=== PATIENT | male | born 1965 | race Asian ===

== ENCOUNTER 2019-09-09 14:37 | Inpatient (IN) | payer MEDICARE, MEDICAID ==
[~2019-09-09] VITALS: Ht 170.2 cm; Wt 102.5 kg
[~2019-09-09 14:37] MED LIST: ACET325T14 PO; AMIT10TA PO; AMLO5TAB4 PO; ASPI81TA45 PO; ATOR10TA PO; CALC667C PO; DARB60VI SQ; LEVO750T26 PO; LISI-170 PO; LISI2.5T PO; METO50TA82 PO; ONDA8TAB12 PO; ONDA8TAB16 SL; OXYC5TAB2 PO; POLY17PO5 PO
[2019-09-09 16:06] LABS: BASOPHILS # (AUTO) 0.05 x10^3/uL (0-0.1); BASOPHILS % (AUTO) 1 % (0-1); EOSINOPHILS # (AUTO) 0.09 x10^3/uL (0-0.4); EOSINOPHILS % (AUTO) 3 % (1-7); LYMPHOCYTES # (AUTO) 0.64 x10^3/uL (1-3.4); LYMPHOCYTES % (AUTO) 17 % (22-44); MD NO; MEAN CORPUSCULAR HGB CONC 33.1 g/dL (33.2-36.2); MEAN CORPUSCULAR VOLUME 87.7 fL (81-97); MEAN PLATELET VOLUME 7.4 fL (7.4-10.4); MONOCYTES # (AUTO) 0.22 x10^3/uL (0.2-0.8); MONOCYTES % (AUTO) 6 % (2-9); NEUTROPHILS # (AUTO) 2.67 x10^3/uL (1.8-6.8); NEUTROPHILS % (AUTO) 73 % (42-75); PLATELET COUNT 161 x10^3/uL (130-400); RED BLOOD COUNT 3.26 x10^6/uL (4.38-5.82); RED CELL DISTRIBUTION WIDTH 15.3 % (9.4-14.8)
[2019-09-09 16:15] LABS: ALBUMIN 3.5 g/dL (3.4-5.0); ANION GAP 9 mmol/L (5-15); CHLORIDE 97 mmol/L (98-107)
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
[2019-09-09] MEDS ORDERED: CYCLOBENZAPRINE 10 MG TABLET ONE (17:19)
[2019-09-09] MEDS ORDERED: OXYcodone/APAP 5/325MG TABLET ONE (17:20)
[2019-09-09] MEDS ORDERED: CYCLOBENZAPRINE 10 MG TABLET PO ONE (17:30)
[2019-09-09] MEDS ORDERED: OXYcodone/APAP 5/325MG TABLET PO ONE (17:30)
--- NOTE | 2019-09-09 18:17 | NUR ---
PT STATES SINCE MEDICATED PAIN IN TAILBONE AREA HAS MOVED TO ANOTHER AREA. NO PAIN DOWN LEGS WHILE LYING IN GURNEY.
--- NOTE | 2019-09-09 19:00 | NUR ---
REPORT TO PRINCESS EDWARDS
--- NOTE | 2019-09-09 19:58 | NUR ---
Patient report given to Med/telegraph service clerk. Patient to be transferred to room 402-2.
[2019-09-09 20:11] VITALS: BP 228/116
[2019-09-09] MEDS ORDERED: hydrALAzine 20 MG/ML, 1ML ONE (21:40)
[2019-09-09] MEDS ORDERED: hydrALAzine 20 MG/ML, 1ML IV ONE (22:00)
[2019-09-09] MEDS ORDERED: CLON0.3T PO (22:17)
[2019-09-09] MEDS ORDERED: FLUT16SP24 NS (22:22)
[2019-09-09] MEDS ORDERED: CYCL-259 PO (22:23)
[2019-09-09] MEDS ORDERED: DULO30CA4 PO (22:24)
[2019-09-09] MEDS ORDERED: AMLO5TAB10 PO (22:25)
[2019-09-09] MEDS ORDERED: ASPI-191 PO (22:26)
[2019-09-09] MEDS ORDERED: AA8/1CAP3 PO (22:26)
[2019-09-09] MEDS ORDERED: MINO2.5T PO (22:28)
[2019-09-09 22:59] VITALS: BP 196/90
[2019-09-10] MEDS ORDERED: AMLO5TAB10 PO (00:26)
[2019-09-10] MEDS ORDERED: DOCUSATE 100 MG CAPSULE PO PRN (00:30)
[2019-09-10] MEDS ORDERED: FLUTICASONE NASAL SPRAY 16GM NAS PRN (00:30)
[2019-09-10] MEDS ORDERED: TEMAZEPAM 15 MG CAPSULE PO PRN (00:30)
[2019-09-10] MEDS ORDERED: AMLODIPINE MC SCH (00:30)
[2019-09-10] MEDS ORDERED: GABAPENTIN 300 MG CAPSULE PO PRN (00:30)
[2019-09-10 01:27] LABS: RAPID INFLUENZA A Negative (Negative); RAPID INFLUENZA B Negative (Negative)
[2019-09-10] MEDS: hydrALAzine 20 MG/ML, 1ML IVPush PRN ×2 (02:35→13:46)
[2019-09-10 02:37] VITALS: BP 209/108
[2019-09-10] MEDS: HEPARIN 5,000 UNITS/ML, 1ML SQ SCH ×3 (05:27→22:13)
[2019-09-10] MEDS: NICOTINE 7 MG/24 HR PATCH.TD24 TD SCH (05:27)
[2019-09-10] MEDS: DULOXETINE 30 MG CAPSULE.DR PO SCH ×3 (05:28→16:23)
[2019-09-10] MEDS ORDERED: AMLODIPINE 5 MG TABLET PO SCH ×2 (06:00→09:00)
[2019-09-10 07:00] VITALS: BP 210/110
[2019-09-10] MEDS: CYCLOBENZAPRINE 10 MG TABLET PO SCH ×2 (07:22→20:18)
[2019-09-10] MEDS: ASPIRIN 81 MG TABLET EC PO SCH (07:41)
[2019-09-10] MEDS: LIDODERM 5% PATCH TD PRN (07:42)
[2019-09-10] MEDS ORDERED: MINOXIDIL 2.5 MG TABLET PO SCH (09:00)
[2019-09-10] MEDS ORDERED: [UNRECOGNIZED DRUG - OTHER] PO SCH (09:00)
[2019-09-10] MEDS: ONDANSETRON 2MG/ML, 2ML IVPush PRN (09:18)
[2019-09-10] MEDS ORDERED: DARBEPOETIN 60 MCG/ML SQ SCH (10:00)
[2019-09-10] MEDS: ACETAMINOPHEN 325 MG TABLET PO PRN ×2 (13:45→20:23)
[2019-09-10 14:58] VITALS: BP 154/74
[2019-09-10 20:06] VITALS: BP 192/94
[2019-09-10] MEDS: METOPROLOL TARTRATE 50 MG TABLET PO SCH (20:19)
[2019-09-10] MEDS: MINOXIDIL 2.5 MG TABLET PO SCH (20:19)
[2019-09-10 21:42] VITALS: BP 163/83
[2019-09-11] VITALS (8 sets, daily range): BP systolic 131–205; BP diastolic 71–106
[2019-09-11] MEDS: ACETAMINOPHEN 325 MG TABLET PO PRN ×3 (01:02→10:41)
[2019-09-11] MEDS: hydrALAzine 20 MG/ML, 1ML IVPush PRN ×2 (01:11→05:18)
[2019-09-11] MEDS ORDERED: AMLODIPINE 10 MG TAB ONE ×2 (02:56→03:31)
[2019-09-11] MEDS: AMLODIPINE 5 MG TABLET PO SCH ×2 (03:37→07:55)
[2019-09-11] MEDS: HEPARIN 5,000 UNITS/ML, 1ML SQ SCH ×2 (05:18→14:00)
[2019-09-11] MEDS: NICOTINE 7 MG/24 HR PATCH.TD24 TD SCH (05:21)
[2019-09-11 05:54] LABS: ALBUMIN 3.4 g/dL (3.4-5.0); BASOPHILS # (AUTO) 0.02 x10^3/uL (0-0.1); BASOPHILS % (AUTO) 1 % (0-1); CALCIUM 8.4 mg/dL (8.5-10.1); CHLORIDE 99 mmol/L (98-107); EOSINOPHILS # (AUTO) 0.08 x10^3/uL (0-0.4); EOSINOPHILS % (AUTO) 2 % (1-7); LYMPHOCYTES # (AUTO) 0.57 x10^3/uL (1-3.4); LYMPHOCYTES % (AUTO) 15 % (22-44); MD NO; MEAN CORPUSCULAR HEMOGLOBIN 29.2 pg (27.5-34.5); MEAN CORPUSCULAR HGB CONC 33.1 g/dL (33.2-36.2); MEAN CORPUSCULAR VOLUME 88.2 fL (81-97); MEAN PLATELET VOLUME 7.7 fL (7.4-10.4); MONOCYTES # (AUTO) 0.24 x10^3/uL (0.2-0.8); MONOCYTES % (AUTO) 6 % (2-9); NEUTROPHILS # (AUTO) 2.88 x10^3/uL (1.8-6.8); NEUTROPHILS % (AUTO) 76 % (42-75); PLATELET COUNT 157 x10^3/uL (130-400); RED BLOOD COUNT 3.28 x10^6/uL (4.38-5.82); RED CELL DISTRIBUTION WIDTH 15.1 % (9.4-14.8)
[2019-09-11 05:57] LABS: ANION GAP 8 mmol/L (5-15); CREATININE 8.78 mg/dL (0.7-1.3)
[2019-09-11] MEDS: CYCLOBENZAPRINE 10 MG TABLET PO SCH (07:54)
[2019-09-11] MEDS: MINOXIDIL 2.5 MG TABLET PO SCH (07:54)
[2019-09-11] MEDS: METOPROLOL TARTRATE 50 MG TABLET PO SCH (07:54)
[2019-09-11] MEDS: ASPIRIN 81 MG TABLET EC PO SCH (07:54)
[2019-09-11] MEDS: LIDODERM 5% PATCH TD PRN (07:58)
[2019-09-11] MEDS: ONDANSETRON 2MG/ML, 2ML IVPush PRN (08:11)
[2019-09-11] MEDS ORDERED: AMLODIPINE 5 MG TABLET PO SCH (09:00)
[2019-09-11] MEDS ORDERED: DULOXETINE 30 MG CAPSULE.DR PO SCH (09:00)
[2019-09-11] MEDS ORDERED: CLON0.1T22 PO (09:46)
[2019-09-11] MEDS ORDERED: MINO2.5T PO (09:46)
[2019-09-11] MEDS: SEVELAMER CARBONATE 800MG TAB PO SCH ×2 (11:59→17:00)
== END 2019-09-11 17:31 | disposition home or self-care (01) | DRG 551 ==
LOC: ED 18:27 → EDIP 18:28 → ED 18:39 → 4WST 19:58 → DCLOUNGE 09-11 17:07
PROVIDERS: ADMIT Internal Medicine; ATTEND Family Medicine
PROC: 5A1D70Z Performance of Urinary Filtration, Intermittent, Less than 6 Hours Per Day (ICD-10-PCS; principal; 2019-09-10)
PROC: 5A1D70Z Performance of Urinary Filtration, Intermittent, Less than 6 Hours Per Day (ICD-10-PCS; 2019-09-11)
DX: M51.36 Other intervertebral disc degeneration, lumbar region (principal); N18.6 End stage renal disease; J96.91 Respiratory failure, unspecified with hypoxia; I13.2 Hypertensive heart and chronic kidney disease with heart failure and with stage 5 chronic kidney disease, or end stage renal disease; E66.01 Morbid (severe) obesity due to excess calories; E78.5 Hyperlipidemia, unspecified; F17.210 Nicotine dependence, cigarettes, uncomplicated; I25.10 Atherosclerotic heart disease of native coronary artery without angina pectoris; I50.9 Heart failure, unspecified; D63.1 Anemia in chronic kidney disease; Z95.1 Presence of aortocoronary bypass graft; Z99.2 Dependence on renal dialysis; Z91.14 Patient's other noncompliance with medication regimen; Z79.899 Other long term (current) drug therapy; Z68.35 Body mass index [BMI] 35.0-35.9, adult; Z79.82 Long term (current) use of aspirin; M54.5 Low back pain
CPT/HCPCS: 36415; 71045; 72110; 80048; 80069; 82040; 85025; 86704; 86706; 87340; 87400; 90935; 93005; 93306; 93356; 99285; G0378; J0881; J1644; J2405; J0360

== ENCOUNTER 2019-09-29 02:41 | Emergency (ER) | payer MEDICAID, MEDICARE ==
[~2019-09-29] VITALS: Ht 170.2 cm; Wt 101.7 kg
[~2019-09-29 02:41] MED LIST changes: +AA8/1CAP3 PO; +AMLO5TAB10 PO; +ASPI-191 PO; +CLON0.1T22 PO; +CLON0.3T PO; +CYCL-259 PO; +DULO30CA4 PO; +FLUT16SP24 NS; +MINO2.5T PO
[2019-09-29] MEDS: NITROGLYCERIN SINGLE TAB 0.4 MG SL PRN ×3 (03:10→03:22)
[2019-09-29] MEDS ORDERED: NITROGLYCERIN/D5W PMX 250 ML ONE (03:19)
[2019-09-29 03:29] LABS: BASOPHILS # (AUTO) 0.04 x10^3/uL (0-0.1); BASOPHILS % (AUTO) 1 % (0-1); EOSINOPHILS # (AUTO) 0.06 x10^3/uL (0-0.4); EOSINOPHILS % (AUTO) 2 % (1-7); LYMPHOCYTES # (AUTO) 0.47 x10^3/uL (1-3.4); LYMPHOCYTES % (AUTO) 13 % (22-44); MD NO; MEAN CORPUSCULAR HEMOGLOBIN 28.2 pg (27.5-34.5); MEAN CORPUSCULAR VOLUME 87.9 fL (81-97); MEAN PLATELET VOLUME 7.5 fL (7.4-10.4); MONOCYTES # (AUTO) 0.25 x10^3/uL (0.2-0.8); MONOCYTES % (AUTO) 7 % (2-9); NEUTROPHILS # (AUTO) 2.93 x10^3/uL (1.8-6.8); NEUTROPHILS % (AUTO) 78 % (42-75); PLATELET COUNT 130 x10^3/uL (130-400); RED BLOOD COUNT 2.93 x10^6/uL (4.38-5.82); RED CELL DISTRIBUTION WIDTH 16.8 % (9.4-14.8)
[2019-09-29 03:38] LABS: ALANINE AMINOTRANSFERASE 17 U/L (12-78); ALBUMIN 3.4 g/dL (3.4-5.0); ANION GAP 11 mmol/L (5-15); CALCIUM 7.2 mg/dL (8.5-10.1); CHLORIDE 99 mmol/L (98-107)
[2019-09-29 03:42] LABS: ALKALINE PHOSPHATASE 92 U/L (45-117); BILIRUBIN,TOTAL 0.6 mg/dL (0.2-1.0)
[2019-09-29] MEDS: NITROGLYCERIN/D5W PMX 250 ML IV PRN ×6 (03:43→04:49)
[2019-09-29 03:45] LABS: TROPONIN I 0.125 ng/mL (0.000-0.045)
--- NOTE | 2019-09-29 03:46 | NUR ---
provider notified of critical troponin of 0.125
[2019-09-29] MEDS ORDERED: ASPIRIN 81 MG TABLET CHEW ONE (03:49)
[2019-09-29] MEDS ORDERED: ACETAMINOPHEN 500 MG TABLET ONE (04:05)
--- NOTE | 2019-09-29 04:24 | NUR ---
PER PROVIDER VERBAL ORDER PT NITRO DRIP SET TO 50MCG/MIN AND TITRATE FROM THERE UP OR DOWN PT VITALS WARANT.
[2019-09-29] MEDS ORDERED: ASPIRIN 81 MG TABLET CHEW PO ONE (04:30)
[2019-09-29] MEDS ORDERED: ACETAMINOPHEN 500 MG TABLET PO ONE (04:30)
--- NOTE | 2019-09-29 04:33 | NUR ---
PER PROVIDER VERBAL ORDER PT NITRO TO BE SET AT 200MCG/MIN AND TITRATE DOWN FROM THERE
--- NOTE | 2019-09-29 04:49 | NUR ---
PER PROVIDER VERBAL ORDER TO STOP NTG DRIP DUE TO IT NOT HELPING PT HTN.
--- NOTE | 2019-09-29 06:42 | NUR ---
pt resting in bed, pt on bipap and tolerating bipap well. pt has decreased sob with bipap. pt asked to wait a couple minute to transfer into floor hospital bed, pt stated "he was comfy at the moment and just give him a couple minutes"
[2019-09-29 06:59] VITALS: BP 186/93
--- NOTE | 2019-09-29 09:03 | NUR ---
PATIENT HAD CHANGED HIS CLOTHES AND WAS FRUSTRATED THAT HE HAS NOT HAD DIALYSIS YET THIS AM. REASURED PATIENT THAT HE IS GOING TO HAVE DIALYSIS BUT PATIENT INSISTANT ON LEAVING. CALLED DR. RIVERA AND NOTIFIED HER THAT PATIENT WISHES TO LEAVE AND GO TO DIALYSIS. PATIENT SIGNED AMA FORM. CALLED [facility] AND SPOKE WITH GRACE LAMBERT, WHO CONFIRMED THAT THEY ARE ABLE TO TAKE PATIENT FOR HIS DIALYSIS TODAY. CALLED GRACE LAMBERT BACK AND NOTIFIED HER THAT PATIENT AGREES TO GO TO DIALYSIS AFTER LEAVING HERE.
== END 2019-09-29 09:01 | disposition left against medical advice (07) ==
LOC: ED 05:18 → EDIP 05:39 → UNDOADMIN 05:39 → ED 09:01
DX: I13.2 Hypertensive heart and chronic kidney disease with heart failure and with stage 5 chronic kidney disease, or end stage renal disease (principal); I50.9 Heart failure, unspecified; N18.6 End stage renal disease; D64.9 Anemia, unspecified; I21.4 Non-ST elevation (NSTEMI) myocardial infarction; F17.200 Nicotine dependence, unspecified, uncomplicated; F12.10 Cannabis abuse, uncomplicated; E87.5 Hyperkalemia; E78.5 Hyperlipidemia, unspecified; E86.1 Hypovolemia; Z99.2 Dependence on renal dialysis
CPT/HCPCS: 36415; 71045; 80053; 83880; 84484; 85025; 93005; 94660; 96374; 96376; 99291

== ENCOUNTER 2019-10-20 01:27 | Inpatient (IN) | payer MEDICARE, MEDICAID ==
[~2019-10-20] VITALS: Ht 170.2 cm; Wt 90.1 kg
[2019-10-20 01:51] LABS: BASOPHILS # (AUTO) 0.02 x10^3/uL (0-0.1); BASOPHILS % (AUTO) 1 % (0-1); EOSINOPHILS # (AUTO) 0.07 x10^3/uL (0-0.4); EOSINOPHILS % (AUTO) 2 % (1-7); LYMPHOCYTES # (AUTO) 0.45 x10^3/uL (1-3.4); LYMPHOCYTES % (AUTO) 13 % (22-44); MD NO; MEAN CORPUSCULAR HEMOGLOBIN 28.8 pg (27.5-34.5); MEAN CORPUSCULAR HGB CONC 32.9 g/dL (33.2-36.2); MEAN CORPUSCULAR VOLUME 87.7 fL (81-97); MEAN PLATELET VOLUME 7.9 fL (7.4-10.4); MONOCYTES # (AUTO) 0.21 x10^3/uL (0.2-0.8); MONOCYTES % (AUTO) 6 % (2-9); NEUTROPHILS # (AUTO) 2.63 x10^3/uL (1.8-6.8); NEUTROPHILS % (AUTO) 78 % (42-75); PLATELET COUNT 118 x10^3/uL (130-400); RED CELL DISTRIBUTION WIDTH 17.2 % (9.4-14.8)
[2019-10-20] MEDS ORDERED: SODIUM CHLORIDE FLUSH 10ML SYR IVF ONE (02:00)
[2019-10-20 02:02] LABS: ALBUMIN 3.5 g/dL (3.4-5.0); ANION GAP 11 mmol/L (5-15); CHLORIDE 98 mmol/L (98-107)
--- NOTE | 2019-10-20 02:26 | NUR ---
FRANCIE RN; PT PLACED ONAP AT THIS TIME BY RT PER MD ORDER
--- NOTE | 2019-10-20 02:39 | NUR ---
PT RESTING ON GURNEY, NO ACUTE DISTRESS NOTED, PLACED CALL LIGHT WITHIN REACH.
[2019-10-20] MEDS ORDERED: hydrALAzine 20 MG/ML, 1ML ONE (03:17)
--- NOTE | 2019-10-20 03:17 | NUR ---
UPDATED ERP ON BP 187/103. PER MD ORDER OK FOR HYDRALAZINE 5MG IV.
--- NOTE | 2019-10-20 03:27 | NUR ---
MEDICATED PER OCT. PT SLEEPING, AROUSABLE TO VERBAL COMMAND. NO DISTRESS NOTED.
[2019-10-20] MEDS ORDERED: hydrALAzine 20 MG/ML, 1ML IV ONE (03:30)
[2019-10-20] MEDS ORDERED: SODIUM CHLORIDE FLUSH 10ML SYR IVF PRN (03:30)
[2019-10-20] MEDS ORDERED: morphine SULFATE 10 MG/ML, 1ML IVPush PRN (04:30)
--- NOTE | 2019-10-20 04:48 | NUR ---
REPORT GIVEN TO AMALIA EDWARDS.
[2019-10-20] MEDS ORDERED: FLUTICASONE NASAL SPRAY 16GM NAS PRN (05:00)
[2019-10-20 05:07] VITALS: BP 174/88
[2019-10-20] MEDS: hydrALAzine 20 MG/ML, 1ML IV PRN (06:45)
[2019-10-20] MEDS ORDERED: LABETALOL 5MG/ML, 20ML IVPush PRN (07:00)
[2019-10-20] MEDS: AMLODIPINE 5 MG TABLET PO SCH (08:16)
[2019-10-20] MEDS: ASPIRIN 81 MG TABLET EC PO SCH (08:17)
[2019-10-20] MEDS: METOPROLOL TARTRATE 50 MG TAB PO SCH ×2 (08:17→21:27)
[2019-10-20] MEDS ORDERED: ARANESP 100 MCG/ML **ESRD SQ SCH (09:30)
[2019-10-20] MEDS: OXYcodone IR 5MG TABLET PO SCH ×3 (09:31→16:57)
[2019-10-20] MEDS: ENALAPRILAT 1.25 MG/ML, 2ML IV PRN (13:08)
[2019-10-20] MEDS: CALCIUM ACETATE 667 MG CAPSULE PO SCH ×3 (17:15→21:30)
[2019-10-20] MEDS: ACETAMINOPHEN 325 MG TABLET PO PRN (20:37)
[2019-10-20] MEDS: ONDANSETRON 2MG/ML, 2ML IVPush PRN (22:16)
[2019-10-21] MEDS: OXYcodone IR 5MG TABLET PO SCH ×4 (00:52→20:33)
[2019-10-21 05:20] LABS: BASOPHILS # (AUTO) 0.01 x10^3/uL (0-0.1); BASOPHILS % (AUTO) 0 % (0-1); EOSINOPHILS % (AUTO) 3 % (1-7); LYMPHOCYTES # (AUTO) 0.43 x10^3/uL (1-3.4); LYMPHOCYTES % (AUTO) 13 % (22-44); MD NO; MEAN CORPUSCULAR HEMOGLOBIN 28.7 pg (27.5-34.5); MEAN CORPUSCULAR HGB CONC 32.6 g/dL (33.2-36.2); MEAN CORPUSCULAR VOLUME 88.1 fL (81-97); MEAN PLATELET VOLUME 8.2 fL (7.4-10.4); MONOCYTES # (AUTO) 0.25 x10^3/uL (0.2-0.8); MONOCYTES % (AUTO) 8 % (2-9); NEUTROPHILS # (AUTO) 2.48 x10^3/uL (1.8-6.8); NEUTROPHILS % (AUTO) 76 % (42-75); PLATELET COUNT 132 x10^3/uL (130-400); RED BLOOD COUNT 3.18 x10^6/uL (4.38-5.82); RED CELL DISTRIBUTION WIDTH 17.5 % (9.4-14.8)
[2019-10-21 05:23] LABS: CHLORIDE 97 mmol/L (98-107)
[2019-10-21 05:33] LABS: ALANINE AMINOTRANSFERASE 18 U/L (12-78); ALBUMIN 3.2 g/dL (3.4-5.0); ALKALINE PHOSPHATASE 96 U/L (45-117); ANION GAP 10 mmol/L (5-15); BILIRUBIN,TOTAL 0.9 mg/dL (0.2-1.0)
[2019-10-21] MEDS: CALCIUM ACETATE 667 MG CAPSULE PO SCH (08:37)
[2019-10-21] MEDS: ASPIRIN 81 MG TABLET EC PO SCH (08:38)
[2019-10-21] MEDS: METOPROLOL TARTRATE 50 MG TAB PO SCH ×2 (08:38→20:31)
[2019-10-21] MEDS: AMLODIPINE 5 MG TABLET PO SCH (08:38)
[2019-10-21 09:27] LABS: TROPONIN I 0.113 ng/mL (0.000-0.045)
[2019-10-21] MEDS: hydrALAzine 20 MG/ML, 1ML IV PRN ×2 (09:51→16:13)
[2019-10-21] MEDS: HEPARIN 5,000 UNITS/ML, 1ML SQ SCH ×2 (09:51→17:29)
[2019-10-21] MEDS: ONDANSETRON 2MG/ML, 2ML IVPush PRN (10:06)
[2019-10-21] MEDS ORDERED: PROMETHAZINE 25 MG/ML, 1ML IM PRN (12:00)
[2019-10-21] MEDS ORDERED: METOCLOPRAMIDE 5 MG/ML, 2ML IVPush ONE (12:00)
[2019-10-21] MEDS ORDERED: CALCIUM ACETATE 667 MG CAPSULE PO SCH (12:00)
[2019-10-21] MEDS: ENALAPRILAT 1.25 MG/ML, 2ML IV PRN (15:03)
[2019-10-21] MEDS: ACETAMINOPHEN 325 MG TABLET PO PRN ×2 (15:11→20:32)
[2019-10-21] MEDS: SEVELAMER CARBONATE 800MG TAB PO SCH (17:29)
[2019-10-22] MEDS: HEPARIN 5,000 UNITS/ML, 1ML SQ SCH ×2 (03:19→10:00)
[2019-10-22] MEDS: OXYcodone IR 5MG TABLET PO SCH ×2 (03:19→08:23)
[2019-10-22 04:56] LABS: CALCIUM 8.1 mg/dL (8.5-10.1); CHLORIDE 96 mmol/L (98-107)
[2019-10-22 04:57] LABS: ANION GAP 11 mmol/L (5-15)
[2019-10-22 05:08] LABS: BASOPHILS # (AUTO) 0.03 x10^3/uL (0-0.1); BASOPHILS % (AUTO) 1 % (0-1); EOSINOPHILS # (AUTO) 0.11 x10^3/uL (0-0.4); EOSINOPHILS % (AUTO) 4 % (1-7); LYMPHOCYTES # (AUTO) 0.58 x10^3/uL (1-3.4); LYMPHOCYTES % (AUTO) 18 % (22-44); MD NO; MEAN CORPUSCULAR HEMOGLOBIN 28.6 pg (27.5-34.5); MEAN CORPUSCULAR HGB CONC 32.5 g/dL (33.2-36.2); MONOCYTES # (AUTO) 0.38 x10^3/uL (0.2-0.8); MONOCYTES % (AUTO) 12 % (2-9); NEUTROPHILS # (AUTO) 2.18 x10^3/uL (1.8-6.8); NEUTROPHILS % (AUTO) 66 % (42-75); PLATELET COUNT 128 x10^3/uL (130-400); RED BLOOD COUNT 3.22 x10^6/uL (4.38-5.82); RED CELL DISTRIBUTION WIDTH 17.3 % (9.4-14.8)
[2019-10-22] MEDS: ASPIRIN 81 MG TABLET EC PO SCH (08:21)
[2019-10-22] MEDS: SEVELAMER CARBONATE 800MG TAB PO SCH ×3 (08:21→13:42)
[2019-10-22] MEDS: METOPROLOL TARTRATE 50 MG TAB PO SCH (08:22)
[2019-10-22] MEDS ORDERED: AMLODIPINE 10 MG TAB PO SCH (09:00)
[2019-10-22] MEDS ORDERED: ATOR40TA78 PO (16:14)
[2019-10-22] MEDS ORDERED: AMLO5TAB10 PO (16:14)
[2019-10-22] MEDS ORDERED: ONDA4TAB7 PO (16:14)
[2019-10-22] MEDS ORDERED: METO50TA82 PO (16:14)
[2019-10-22] MEDS ORDERED: SEVE800T8 PO (16:14)
== END 2019-10-22 17:13 | disposition home or self-care (01) | DRG 189 ==
LOC: ED 03:45 → EDIP 03:47 → CCU 04:56 → 4WST 10-22 12:02 → DCLOUNGE 10-22 17:02
PROVIDERS: ADMIT Family Medicine; ATTEND Hospitalist
PROC: 5A09357 Assistance with Respiratory Ventilation, Less than 24 Consecutive Hours, Continuous Positive Airway Pressure (ICD-10-PCS; principal; 2019-10-20)
PROC: 5A1D70Z Performance of Urinary Filtration, Intermittent, Less than 6 Hours Per Day (ICD-10-PCS; 2019-10-20)
PROC: 5A09357 Assistance with Respiratory Ventilation, Less than 24 Consecutive Hours, Continuous Positive Airway Pressure (ICD-10-PCS; 2019-10-21)
PROC: 5A09357 Assistance with Respiratory Ventilation, Less than 24 Consecutive Hours, Continuous Positive Airway Pressure (ICD-10-PCS; 2019-10-22)
PROC: 5A1D70Z Performance of Urinary Filtration, Intermittent, Less than 6 Hours Per Day (ICD-10-PCS; 2019-10-22)
DX: J96.01 Acute respiratory failure with hypoxia (principal); I21.A1 Myocardial infarction type 2; N18.6 End stage renal disease; D61.818 Other pancytopenia; E87.1 Hypo-osmolality and hyponatremia; I13.2 Hypertensive heart and chronic kidney disease with heart failure and with stage 5 chronic kidney disease, or end stage renal disease; I50.1 Left ventricular failure, unspecified; I50.30 Unspecified diastolic (congestive) heart failure; D63.1 Anemia in chronic kidney disease; E78.5 Hyperlipidemia, unspecified; E87.5 Hyperkalemia; I25.10 Atherosclerotic heart disease of native coronary artery without angina pectoris; G47.33 Obstructive sleep apnea (adult) (pediatric); F17.200 Nicotine dependence, unspecified, uncomplicated; I27.20 Pulmonary hypertension, unspecified; N25.0 Renal osteodystrophy; E83.51 Hypocalcemia; I08.1 Rheumatic disorders of both mitral and tricuspid valves; Z99.2 Dependence on renal dialysis; I25.2 Old myocardial infarction; Z91.19 Patient's noncompliance with other medical treatment and regimen
CPT/HCPCS: 36415; 36600; 71045; 80048; 80053; 82040; 82803; 83735; 83880; 84100; 84484; 85025; 86706; 87081; 87340; 90935; 93005; 93306; 94660; 96374; 99291; G0378; J0882; J1644; J2405; J0360; J2765

== ENCOUNTER 2020-05-31 03:47 | Emergency (ER) | payer MEDICARE, MEDICAID ==
[~2020-05-31] VITALS: Ht 170.2 cm; Wt 90.0 kg
[~2020-05-31 03:47] MED LIST changes: +ATOR-2 PO; +ATOR40TA78 PO; +CARV25TA12 PO; +CLON0.2T PO; +HYDR-3342 PO; +ONDA4TAB7 PO; +SEVE800T8 PO; +TICA90TA PO
[2020-05-31] MEDS ORDERED: LORazepam 2 MG/ML, 1ML ONE (04:12)
[2020-05-31 04:23] LABS: BASOPHILS % (AUTO) 1 % (0-1); EOSINOPHILS % (AUTO) 1 % (1-7); LYMPHOCYTES % (AUTO) 13 % (22-44); MEAN CORPUSCULAR HEMOGLOBIN 27.8 pg (27.5-34.5); MEAN CORPUSCULAR HGB CONC 32.3 g/dL (33.2-36.2); MEAN PLATELET VOLUME 8.1 fL (7.4-10.4); MONOCYTES % (AUTO) 6 % (2-9); NEUTROPHILS % (AUTO) 79 % (42-75); PLATELET COUNT 121 x10^3/uL (130-400); RED BLOOD COUNT 3.37 x10^6/uL (4.38-5.82)
[2020-05-31 04:25] LABS: MD NO
[2020-05-31 04:29] LABS: ALANINE AMINOTRANSFERASE 11 U/L (12-78); ALBUMIN 3.8 g/dL (3.4-5.0); ANION GAP 14 mmol/L (5-15); CALCIUM 8.1 mg/dL (8.5-10.1); CHLORIDE 100 mmol/L (98-107)
[2020-05-31] MEDS ORDERED: PLEASE ENTER HEIGHT AND WEIGHT MC SCH (04:30)
[2020-05-31] MEDS ORDERED: SODIUM CHLORIDE FLUSH 10ML SYR IVF ONE (04:30)
[2020-05-31] MEDS ORDERED: LORazepam 2 MG/ML, 1ML IVPush ONE (04:30)
[2020-05-31 04:34] LABS: ALKALINE PHOSPHATASE 115 U/L (45-117); BILIRUBIN,TOTAL 0.9 mg/dL (0.2-1.0)
[2020-05-31 04:35] LABS: TROPONIN I 0.499 ng/mL (0.000-0.045)
--- NOTE | 2020-05-31 04:42 | NUR ---
BIBA. A&o x4, answering questions appropriately. PA at bedside immediately upon arrival. States sudden onset SOB x 3-4 hours. Pt states he is / dialysis pt, had to change last week's schedule d/t family obligations to /. Pt wears 2L NC PRN at baseline, arrives on 4L NC O2 mid 90s. Pt states significant SOB. No use of accessory muscles noted. Denies chest pain. Denies fever/chills. Denies N/V/D. Able to ambulate from EMS to ED stretcher with 1 staff assist. Placed on continuous O2 monitoring and tele. NSR noted on monitor.
--- NOTE | 2020-05-31 05:11 | NUR ---
Pt sitting on edge of bed. Refuses to stay fully on stretcher. States he feels decreased WOB in this position. Remains on tele/continuous O2 monitoring. Bed low, side rails remain up, call childress within reach. Verbalizes understanding not to get OOB without staff assist
[2020-05-31] MEDS ORDERED: LABETALOL 20 MG/4 ML ONE (05:24)
--- NOTE | 2020-05-31 05:28 | NUR ---
BP 203/107, HR 90s. aware. Plan for labetolol and d/c to dialysis via cab. See eMAR for additional details
[2020-05-31] MEDS ORDERED: LABETALOL 5MG/ML, 20ML IVPush ONE (05:30)
[2020-05-31 05:44] VITALS: BP 179/83
--- NOTE | 2020-05-31 05:48 | NUR ---
Good effect noted from labetalol. BP 179/86, HR 80s. Pt states that he would like to go to scheduled 0600 dialysis appt at [facility]. States that he feels comfortable taking cab. Ambulated in room independently, steady gait. O2 remained mid 90s RA. Provided with cab voucher. Pt verbalizes understanding r/t f/u care and returning to ED with worsening sx
== END 2020-05-31 05:50 | disposition home or self-care (01) ==
LOC: ED 05:30
DX: I12.9 Hypertensive chronic kidney disease with stage 1 through stage 4 chronic kidney disease, or unspecified chronic kidney disease (principal); N18.6 End stage renal disease; J81.0 Acute pulmonary edema; G89.29 Other chronic pain; R06.00 Dyspnea, unspecified; R94.31 Abnormal electrocardiogram [ECG] [EKG]; E78.5 Hyperlipidemia, unspecified; R79.89 Other specified abnormal findings of blood chemistry
CPT/HCPCS: 36415; 71045; 80053; 83735; 84484; 85025; 93005; 96374; 96375; 99285; J2060

== ENCOUNTER 2020-06-10 21:18 | Emergency (ER) | payer MEDICARE, MEDICAID ==
[~2020-06-10] VITALS: Ht 170.2 cm; Wt 96.3 kg
[2020-06-10] MEDS ORDERED: SODIUM CHLORIDE FLUSH 10ML SYR IVF ONE (22:00)
[2020-06-10] MEDS ORDERED: ACETAMINOPHEN 325 MG TABLET PO ONE (22:00)
[2020-06-10 22:25] LABS: BASOPHILS % (AUTO) 1 % (0-1); EOSINOPHILS % (AUTO) 1 % (1-7); LYMPHOCYTES % (AUTO) 17 % (22-44); MEAN CORPUSCULAR HEMOGLOBIN 28.5 pg (27.5-34.5); MEAN CORPUSCULAR HGB CONC 32.6 g/dL (33.2-36.2); MEAN PLATELET VOLUME 7.2 fL (7.4-10.4); MONOCYTES % (AUTO) 7 % (2-9); NEUTROPHILS % (AUTO) 74 % (42-75); PLATELET COUNT 130 x10^3/uL (130-400); RED BLOOD COUNT 2.82 x10^6/uL (4.38-5.82); RED CELL DISTRIBUTION WIDTH 18.9 % (9.4-14.8)
[2020-06-10] MEDS ORDERED: ACETAMINOPHEN 325 MG TABLET ONE (22:31)
[2020-06-10 22:32] LABS: ALANINE AMINOTRANSFERASE 15 U/L (12-78); ALBUMIN 3.6 g/dL (3.4-5.0); ANION GAP 11 mmol/L (5-15); CHLORIDE 99 mmol/L (98-107)
[2020-06-10 22:35] VITALS: BP 172/87
[2020-06-10 22:36] LABS: MD NO
[2020-06-10 22:49] LABS: ALKALINE PHOSPHATASE 107 U/L (45-117); BILIRUBIN,TOTAL 0.7 mg/dL (0.2-1.0); TOTAL PROTEIN 7.4 g/dL (6.4-8.2)
[2020-06-10 22:55] LABS: TROPONIN I 0.246 ng/mL (0.000-0.045)
--- NOTE | 2020-06-10 23:35 | NUR ---
PER DR. JANSEN PT TO DC HOME. PT NORMALLY HAS DIALYSIS AT 0500 AND WOULD NOT GET UNTIL 1500. PT UNHAPPY WITH THIS AND HAS SAID HE RATHER GO HOME PER NEPHRO THIS IS OK
--- NOTE | 2020-06-10 23:54 | NUR ---
Patient/Caregiver given discharge instructions and they have confirmed that they understand the instructions. Patient ambulatory with steady gait. pt to dc with taxi voucher.
== END 2020-06-11 00:06 | disposition home or self-care (01) ==
LOC: ED 22:30
DX: R06.00 Dyspnea, unspecified (principal); R07.89 Other chest pain; R06.02 Shortness of breath; R50.9 Fever, unspecified; I50.9 Heart failure, unspecified; I11.0 Hypertensive heart disease with heart failure; E87.5 Hyperkalemia; E78.5 Hyperlipidemia, unspecified; G89.29 Other chronic pain; I95.9 Hypotension, unspecified; E86.1 Hypovolemia
CPT/HCPCS: 36415; 71045; 80053; 83880; 84484; 85025; 93005; 99285

== ENCOUNTER 2020-09-16 09:50 | Inpatient (IN) | payer MEDICARE, MEDICAID ==
[~2020-09-16] VITALS: Ht 170.2 cm; Wt 119.5 kg
[~2020-09-16 09:50] MED LIST changes: +AMLO-210 PO; -AMLO5TAB10 PO; -CYCL-259 PO; +CYCL10TA2 PO; +ISOS30TA8 PO; +OXYC10TA6 PO; +ROPI0.5T4 PO
[2020-09-16] MEDS ORDERED: SODIUM CHLORIDE 0.9% 1,000 ML IV SCH (11:00)
[2020-09-16] MEDS ORDERED: CHLORHEXIDINE 15 ML UDC MM ONE (11:00)
[2020-09-16] MEDS ORDERED: PROTAMINE SULFATE 10 MG/ML, 5ML ONE (11:18)
[2020-09-16] MEDS ORDERED: BUPIVACAINE/PF 0.5% ONE (11:18)
[2020-09-16] MEDS ORDERED: HEPARIN 1,000 UNITS/ML, 30ML ONE (11:19)
[2020-09-16] MEDS ORDERED: EPINEPHRINE 1 MG/ML, 1ML ONE (11:19)
[2020-09-16 11:25] VITALS: BP 162/91
[2020-09-16 11:28] LABS: BASOPHILS % (AUTO) 1 % (0-1); EOSINOPHILS % (AUTO) 2 % (1-7); LYMPHOCYTES % (AUTO) 19 % (22-44); MEAN CORPUSCULAR HEMOGLOBIN 28.7 pg (27.5-34.5); MEAN CORPUSCULAR HGB CONC 32.4 g/dL (33.2-36.2); MEAN PLATELET VOLUME 7.7 fL (7.4-10.4); MONOCYTES % (AUTO) 10 % (2-9); NEUTROPHILS % (AUTO) 68 % (42-75); PLATELET COUNT 123 x10^3/uL (130-400); RED BLOOD COUNT 3.35 x10^6/uL (4.38-5.82); RED CELL DISTRIBUTION WIDTH 17.2 % (9.4-14.8)
[2020-09-16 11:34] LABS: MD NO
[2020-09-16 11:38] LABS: INTERNATIONAL NORMALIZED RATIO 1.1 (0.93-1.1); PROTHROMBIN TIME 11.8 Seconds (9.6-11.5)
[2020-09-16] MEDS ORDERED: HYDR-3342 PO (11:38)
[2020-09-16] MEDS ORDERED: CARV-39 PO (11:38)
[2020-09-16] MEDS ORDERED: TICA90TA PO (11:38)
[2020-09-16] MEDS ORDERED: ISOS30TA8 PO (11:38)
[2020-09-16] MEDS ORDERED: AMLO-150 PO (11:38)
[2020-09-16] MEDS ORDERED: ATOR-2 PO (11:38)
[2020-09-16] MEDS ORDERED: SEVE800T8 PO (11:38)
[2020-09-16 11:40] LABS: ALANINE AMINOTRANSFERASE 13 U/L (12-78); ALBUMIN 3.6 g/dL (3.4-5.0); ANION GAP 17 mmol/L (5-15); CHLORIDE 103 mmol/L (98-107)
[2020-09-16 11:42] LABS: ALKALINE PHOSPHATASE 128 U/L (45-117); BILIRUBIN,TOTAL 0.5 mg/dL (0.2-1.0); TOTAL PROTEIN 7.4 g/dL (6.4-8.2)
[2020-09-16] MEDS ORDERED: HEPARIN 5,000 UNITS/ML, 1ML ONE (12:55)
[2020-09-16] MEDS ORDERED: MIDAZOLAM 1 MG/ML, 2ML ONE (13:16)
[2020-09-16] MEDS ORDERED: FENTANYL PF 250 MCG/5ML ONE (13:17)
[2020-09-16 15:51] VITALS: BP 181/95
[2020-09-16 15:53] VITALS: BP 181/95
[2020-09-16] MEDS: CARVEDILOL 25 MG TABLET PO SCH ×2 (16:00→23:13)
[2020-09-16] MEDS ORDERED: ONDANSETRON 4 MG TABLET PO PRN (16:00)
[2020-09-16] MEDS ORDERED: ONDANSETRON 2MG/ML, 2ML IVPush PRN (16:00)
[2020-09-16] MEDS ORDERED: ONDANSETRON ODT 4 MG PO PRN (16:00)
[2020-09-16] MEDS: SEVELAMER CARBONATE 800MG TAB PO SCH (17:00)
[2020-09-16] MEDS: OXYcodone IR 5MG TABLET PO PRN (17:50)
[2020-09-16 18:56] VITALS: BP 145/89
[2020-09-16] MEDS: INSULIN LISPRO 100 UNITS/ML, PEN SQ-INSULIN SCH (22:33)
[2020-09-16 23:10] VITALS: BP 156/89
[2020-09-16] MEDS: ATORVASTATIN 80 MG TABLET PO SCH (23:12)
[2020-09-16] MEDS: CYCLOBENZAPRINE 10 MG TABLET PO SCH (23:13)
[2020-09-17 00:31] VITALS: BP 132/76
[2020-09-17] MEDS: OXYcodone IR 5MG TABLET PO PRN ×2 (03:12→19:03)
[2020-09-17 05:26] LABS: BASOPHILS % (AUTO) 1 % (0-1); EOSINOPHILS % (AUTO) 2 % (1-7); LYMPHOCYTES % (AUTO) 16 % (22-44); MEAN CORPUSCULAR HEMOGLOBIN 28.7 pg (27.5-34.5); MEAN CORPUSCULAR HGB CONC 32.7 g/dL (33.2-36.2); MEAN PLATELET VOLUME 8.1 fL (7.4-10.4); MONOCYTES % (AUTO) 12 % (2-9); NEUTROPHILS % (AUTO) 69 % (42-75); PLATELET COUNT 111 x10^3/uL (130-400); RED CELL DISTRIBUTION WIDTH 17.1 % (9.4-14.8)
[2020-09-17 05:29] LABS: MD NO
[2020-09-17 05:39] LABS: ALANINE AMINOTRANSFERASE 12 U/L (12-78); ALBUMIN 3.4 g/dL (3.4-5.0); ANION GAP 11 mmol/L (5-15); CALCIUM 8.1 mg/dL (8.5-10.1); CHLORIDE 103 mmol/L (98-107)
[2020-09-17 05:41] LABS: ALKALINE PHOSPHATASE 121 U/L (45-117); BILIRUBIN,TOTAL 0.5 mg/dL (0.2-1.0); TOTAL PROTEIN 7.1 g/dL (6.4-8.2)
[2020-09-17 06:29] VITALS: BP 131/76
[2020-09-17] MEDS: INSULIN LISPRO 100 UNITS/ML, PEN SQ-INSULIN SCH ×2 (07:00→11:00)
[2020-09-17] MEDS: SEVELAMER CARBONATE 800MG TAB PO SCH ×3 (07:35→17:00)
[2020-09-17] MEDS: CYCLOBENZAPRINE 10 MG TABLET PO SCH ×2 (07:35→20:23)
[2020-09-17] MEDS: CARVEDILOL 25 MG TABLET PO SCH ×3 (07:35→20:21)
[2020-09-17] MEDS: ROPINIROLE 0.5MG TABLET PO SCH (09:00)
[2020-09-17] MEDS: AMLODIPINE 5 MG TABLET PO SCH (09:00)
[2020-09-17] MEDS: ISOSORBIDE MONONITRATE ER 30 MG TABLET PO SCH (09:00)
[2020-09-17] MEDS: DULOXETINE 30 MG CAPSULE.DR PO SCH (09:00)
[2020-09-17] MEDS ORDERED: PROTAMINE SULFATE 10 MG/ML, 5ML ONE (12:31)
[2020-09-17] MEDS ORDERED: THROMBIN 5,000 UNIT VIAL TP ONE (12:31)
[2020-09-17] MEDS ORDERED: BUPIVACAINE/PF 0.5% ONE (12:31)
[2020-09-17] MEDS ORDERED: HEPARIN 1,000 UNITS/ML, 10ML ONE ×2 (12:31→14:19)
[2020-09-17] MEDS ORDERED: EPINEPHRINE 1 MG/ML, 1ML ONE (12:32)
[2020-09-17 12:49] VITALS: BP 129/79
[2020-09-17] MEDS ORDERED: FENTANYL PF 250 MCG/5ML ONE (13:04)
[2020-09-17] MEDS ORDERED: HYDROmorphone 1 MG/ML, 1ML INJ IVPush PRN (14:00)
[2020-09-17] MEDS ORDERED: ONDANSETRON 2MG/ML, 2ML IVPush PRN (14:00)
[2020-09-17] MEDS ORDERED: LABETALOL 5MG/ML, 20ML IV PRN (14:00)
[2020-09-17] MEDS ORDERED: hydrALAzine 20 MG/ML, 1ML IV PRN (14:00)
[2020-09-17] MEDS ORDERED: FENTANYL PF 100 MCG/2ML IV PRN (14:00)
[2020-09-17] MEDS ORDERED: BUPIVACAINE/PF-EPI 0.5% 1:200K INFIL ONE (14:24)
[2020-09-17 17:26] VITALS: BP 144/96
[2020-09-17 20:21] VITALS: BP 164/86
[2020-09-17] MEDS: ATORVASTATIN 80 MG TABLET PO SCH (20:24)
[2020-09-18 02:00] VITALS: BP 144/88
[2020-09-18] MEDS: OXYcodone IR 5MG TABLET PO PRN ×2 (03:13→16:11)
[2020-09-18 07:00] VITALS: BP 136/78
[2020-09-18] MEDS: AMLODIPINE 5 MG TABLET PO SCH (09:00)
[2020-09-18] MEDS: CARVEDILOL 25 MG TABLET PO SCH ×2 (09:00→16:10)
[2020-09-18] MEDS: ISOSORBIDE MONONITRATE ER 30 MG TABLET PO SCH (09:00)
[2020-09-18] MEDS: DULOXETINE 30 MG CAPSULE.DR PO SCH (09:27)
[2020-09-18] MEDS: SEVELAMER CARBONATE 800MG TAB PO SCH ×2 (09:27→11:49)
[2020-09-18] MEDS: CYCLOBENZAPRINE 10 MG TABLET PO SCH (09:27)
[2020-09-18] MEDS: ROPINIROLE 0.5MG TABLET PO SCH (09:27)
[2020-09-18 15:18] VITALS: BP 149/84
[2020-09-18] MEDS ORDERED: TICA90TA PO (15:31)
== END 2020-09-18 16:51 | disposition home or self-care (01) | DRG 252 ==
LOC: OUT 09:50 → ORIP 14:51 → 4WST 15:29
PROVIDERS: ADMIT Internal Medicine; ATTEND Internal Medicine
PROC: B54BZZA Ultrasonography of Right Lower Extremity Veins, Guidance (ICD-10-PCS; 2020-09-16)
PROC: 06HY33Z Insertion of Infusion Device into Lower Vein, Percutaneous Approach (ICD-10-PCS; principal; 2020-09-16 12:30)
PROC: 05WY07Z Revision of Autologous Tissue Substitute in Upper Vein, Open Approach (ICD-10-PCS; 2020-09-17)
PROC: 5A1D70Z Performance of Urinary Filtration, Intermittent, Less than 6 Hours Per Day (ICD-10-PCS; 2020-09-18)
DX: T82.868A Thrombosis due to vascular prosthetic devices, implants and grafts, initial encounter (principal); N18.6 End stage renal disease; I50.22 Chronic systolic (congestive) heart failure; I13.2 Hypertensive heart and chronic kidney disease with heart failure and with stage 5 chronic kidney disease, or end stage renal disease; Z68.41 Body mass index [BMI] 40.0-44.9, adult; J96.11 Chronic respiratory failure with hypoxia; T82.858A Stenosis of other vascular prosthetic devices, implants and grafts, initial encounter; D63.1 Anemia in chronic kidney disease; D69.6 Thrombocytopenia, unspecified; E11.22 Type 2 diabetes mellitus with diabetic chronic kidney disease; E66.9 Obesity, unspecified; E87.5 Hyperkalemia; G47.33 Obstructive sleep apnea (adult) (pediatric); I25.10 Atherosclerotic heart disease of native coronary artery without angina pectoris; J44.9 Chronic obstructive pulmonary disease, unspecified; Y83.2 Surgical operation with anastomosis, bypass or graft as the cause of abnormal reaction of the patient, or of later complication, without mention of misadventure at the time of the procedure; Z20.822 Contact with and (suspected) exposure to COVID-19; Z82.49 Family history of ischemic heart disease and other diseases of the circulatory system; Z95.1 Presence of aortocoronary bypass graft; Z99.2 Dependence on renal dialysis; Z99.81 Dependence on supplemental oxygen
CPT/HCPCS: 36415; 80053; 82306; 82728; 82962; 83540; 83550; 83735; 83970; 84100; 85025; 85610; 86705; 86706; 87340; 87635; 90935; G0378; J0171; J1644; J2250; J2405; J2720; J3010; C1752; J1815; J7030

== ENCOUNTER 2020-11-21 19:52 | Inpatient (IN) | payer MEDICARE, MEDICAID ==
[~2020-11-21] VITALS: Ht 170.2 cm; Wt 109.1 kg
[~2020-11-21 19:52] MED LIST changes: +AMLO-150 PO; +CARV-39 PO
--- NOTE | 2020-11-21 19:52 | NUR ---
EMS report received and care assumed at 1930. IV started at 1940 but unable to draw labs with start. 12 Lead EKG done at 1943 by RN secondary to no tech available and pt noted to still not be registered. EKG brought to Dr. Pike for assessment and initialed by . Registration then asked to register pt. Pt registered at 1951.
--- NOTE | 2020-11-21 20:30 | NUR ---
at bedside for exam.
[2020-11-21 20:57] LABS: BASOPHILS % (AUTO) 1 % (0-1); EOSINOPHILS % (AUTO) 1 % (1-7); LYMPHOCYTES % (AUTO) 19 % (22-44); MEAN CORPUSCULAR HEMOGLOBIN 28.7 pg (27.5-34.5); MEAN CORPUSCULAR HGB CONC 32.4 g/dL (33.2-36.2); MEAN PLATELET VOLUME 8.6 fL (7.4-10.4); MONOCYTES % (AUTO) 8 % (2-9); NEUTROPHILS % (AUTO) 72 % (42-75); PLATELET COUNT 137 x10^3/uL (130-400); RED CELL DISTRIBUTION WIDTH 17.2 % (9.4-14.8)
[2020-11-21 20:59] LABS: MD NO
[2020-11-21 21:07] LABS: ALBUMIN 3.9 g/dL (3.4-5.0); ANION GAP 13 mmol/L (5-15); CALCIUM 8.7 mg/dL (8.5-10.1); CHLORIDE 95 mmol/L (98-107)
[2020-11-21 21:12] LABS: TROPONIN I 0.027 ng/mL (0.000-0.045)
--- NOTE | 2020-11-21 21:15 | NUR ---
Pt up to restroom. Steady strong gait noted.
[2020-11-21] MEDS ORDERED: INSULIN REGULAR 100 UNITS/ML, 3ML VIAL IVPush ONE (21:30)
[2020-11-21] MEDS ORDERED: DEXTROSE 50%, 50ML SYRINGE IVPush ONE ×2 (21:30)
[2020-11-21] MEDS ORDERED: SODIUM BICARB 8.4%, 50ML SYRINGE IVPush ONE (21:30)
--- NOTE | 2020-11-21 21:40 | NUR ---
Pt asking for Morphine for chest pain. ER MD notified of pt request.
[2020-11-21] MEDS ORDERED: DEXTROSE 50%, 50ML SYRINGE ONE (21:43)
[2020-11-21] MEDS ORDERED: SODIUM BICARB 8.4%, 50ML SYRINGE ONE (21:43)
[2020-11-21] MEDS ORDERED: INSULIN SINGLE DOSE, ER ONE (21:43)
[2020-11-21] MEDS ORDERED: SODIUM CHLORIDE FLUSH 10ML SYR IVF PRN (22:00)
[2020-11-21] MEDS ORDERED: SODIUM ZIRCONIUM CYCLOSILICATE 10 GM PO ONE (22:00)
--- NOTE | 2020-11-21 22:00 | NUR ---
No orders for pain meds received. Pt notified.
--- NOTE | 2020-11-21 22:35 | NUR ---
Admitting MD in room for assessment.
--- NOTE | 2020-11-21 22:42 | NUR ---
Attempt to call report to GRACE Licea unsuccessful.
--- NOTE | 2020-11-21 22:49 | NUR ---
Second call for report successful to GRACE Dela Cruz.
--- NOTE | 2020-11-21 22:58 | NUR ---
VS reassessed prior to transfer. Pt aware of pending movement to floor. Awaiting transporter to come take pt up.
[2020-11-21] MEDS ORDERED: NITROGLYCERIN 0.4 MG BOTTLE (25 TABS) SL PRN (23:00)
[2020-11-21] MEDS ORDERED: DOCUSATE 100 MG CAPSULE PO PRN (23:00)
[2020-11-21] MEDS ORDERED: hydrALAzine 20 MG/ML, 1ML IVPush PRN (23:00)
[2020-11-21] MEDS ORDERED: LIDODERM 5% PATCH TD PRN (23:00)
[2020-11-21] MEDS ORDERED: ACETAMINOPHEN 325 MG TABLET PO PRN (23:00)
[2020-11-21] MEDS ORDERED: MELATONIN 5 MG TABLET PO PRN (23:00)
[2020-11-21 23:40] VITALS: BP 144/65
[2020-11-22] MEDS ORDERED: SODIUM ZIRCONIUM CYCLOSILICATE 10 GM PO ONE (00:30)
[2020-11-22 04:05] LABS: BASOPHILS % (AUTO) 1 % (0-1); EOSINOPHILS % (AUTO) 1 % (1-7); LYMPHOCYTES % (AUTO) 21 % (22-44); MEAN CORPUSCULAR HEMOGLOBIN 28.5 pg (27.5-34.5); MEAN CORPUSCULAR HGB CONC 32.4 g/dL (33.2-36.2); MEAN PLATELET VOLUME 8.1 fL (7.4-10.4); MONOCYTES % (AUTO) 9 % (2-9); NEUTROPHILS % (AUTO) 68 % (42-75); PLATELET COUNT 115 x10^3/uL (130-400); RED BLOOD COUNT 4.59 x10^6/uL (4.38-5.82); RED CELL DISTRIBUTION WIDTH 16.7 % (9.4-14.8)
[2020-11-22 04:08] LABS: ANION GAP 16 mmol/L (5-15); CALCIUM 8.2 mg/dL (8.5-10.1); CHLORIDE 96 mmol/L (98-107)
[2020-11-22 04:17] LABS: MD NO; TROPONIN I 0.028 ng/mL (0.000-0.045)
[2020-11-22 06:39] VITALS: BP 172/106
[2020-11-22] MEDS ORDERED: SODIUM ZIRCONIUM CYCLOSILICATE 10 GM PO SCH (09:00)
[2020-11-22 09:29] VITALS: BP 161/72
[2020-11-22 09:53] LABS: TROPONIN I 0.027 ng/mL (0.000-0.045)
[2020-11-22] MEDS ORDERED: MORPHINE SULFATE 4 MG/ML, 1ML IVPush ONE (10:30)
[2020-11-22 12:27] VITALS: BP 171/63
[2020-11-22 19:32] VITALS: BP 167/88
[2020-11-22] MEDS ORDERED: ATORVASTATIN 80 MG TABLET PO SCH (21:00)
[2020-11-22 23:55] VITALS: BP 135/85
[2020-11-23 05:06] LABS: ANION GAP 12 mmol/L (5-15); CALCIUM 9.1 mg/dL (8.5-10.1); CHLORIDE 95 mmol/L (98-107)
[2020-11-23 07:42] VITALS: BP 172/98
[2020-11-23] MEDS ORDERED: ROPINIROLE 0.5MG TABLET PO SCH (09:00)
[2020-11-23] MEDS ORDERED: ASPIRIN 81 MG TABLET EC PO SCH (09:00)
[2020-11-23] MEDS ORDERED: AMLODIPINE 10 MG TAB PO SCH (09:00)
[2020-11-23] MEDS ORDERED: ISOSORBIDE MONONITRATE ER 30 MG TABLET PO SCH (09:00)
== END 2020-11-23 12:25 | disposition home or self-care (01) | DRG 302 ==
LOC: ED 21:22 → EDIP 22:13 → 4WST 23:06 → DCLOUNGE 11-23 11:59
PROVIDERS: ADMIT Family Medicine; ATTEND Hospitalist
PROC: 5A1D70Z Performance of Urinary Filtration, Intermittent, Less than 6 Hours Per Day (ICD-10-PCS; principal; 2020-11-22)
DX: I25.110 Atherosclerotic heart disease of native coronary artery with unstable angina pectoris (principal); N18.6 End stage renal disease; I50.23 Acute on chronic systolic (congestive) heart failure; I13.2 Hypertensive heart and chronic kidney disease with heart failure and with stage 5 chronic kidney disease, or end stage renal disease; J96.11 Chronic respiratory failure with hypoxia; E87.1 Hypo-osmolality and hyponatremia; E87.5 Hyperkalemia; G89.29 Other chronic pain; M54.9 Dorsalgia, unspecified; I25.2 Old myocardial infarction; E66.01 Morbid (severe) obesity due to excess calories; E11.22 Type 2 diabetes mellitus with diabetic chronic kidney disease; D63.1 Anemia in chronic kidney disease; N25.0 Renal osteodystrophy; G47.33 Obstructive sleep apnea (adult) (pediatric); J44.9 Chronic obstructive pulmonary disease, unspecified; E78.5 Hyperlipidemia, unspecified; Z99.81 Dependence on supplemental oxygen; Z95.1 Presence of aortocoronary bypass graft; Z99.2 Dependence on renal dialysis; Z83.3 Family history of diabetes mellitus; Z82.49 Family history of ischemic heart disease and other diseases of the circulatory system; Z84.1 Family history of disorders of kidney and ureter; Z87.891 Personal history of nicotine dependence; Z79.899 Other long term (current) drug therapy
CPT/HCPCS: 36415; 71045; 80048; 82040; 82962; 83735; 84100; 84484; 85025; 93005; 96374; 96375; 99291; G0378; J1815; J0360; J2270